=== PATIENT | male | born 1940 | race Caucasian/White ===

== ENCOUNTER 2019-10-22 16:02 | Outpatient (CLI) | payer MEDICARE, OTHER, SELFPAY ==
--- NOTE | 2019-10-26 11:40 | ONC FU_ITS ---
Dr. Ott Patient Follow-Up Note Patient: Marco Antonio Lowry Unit #: [id number]: [id number] Dicatated By: Omega Ott M.D.Date of Visit:Oct 22, 2019 Onc Med Follow-up/Prog Note Chief Complaint: Anemia and thrombocytopenia. History of Present Illness: This is a 79 year-old man with anemia and thrombocytopenia. He also has a left upper lobe lung nodule, suspected to be malignant. He has known history of Jenny score 7 (3+4) adenocarcinoma of the prostate, by clinical evaluation stage II (T1c, NX, M0), initially diagnosed in July 2009. His pretreatment PSA was 7.2 ng/mL. He underwent definitive radiation, completed on 02/02/2010 to a total dose of 7560 cGy. At that time he also was given short-term androgen deprivation therapy. His PSA declined to 0.03. However, by 2014 and had began to increase gradually. In October 2017 he had been admitted to the hospital with anemia, hemoglobin 7.3 g. He hadacute upper GI bleeding, and he had evidence of acute non-ST elevation myocardial infarction. He required transfusion of 3 U of packed red blood cells. When he was clinically stable he underwent EGD which showed gastritis, duodenitis, and acute duodenal ulcers. On 12/27/2017 he was readmitted to the hospital for coronary angiography. Sound to have high-grade in-stent narrowing in the right coronary artery at the proximal and distal portions of the stented segments. There was high-grade stenosis in the stented segment of the first obtuse marginal artery. There was mild to moderate diffuse disease in other vessels with extensive coronary calcification. He underwent successful balloon angioplasty for the in-stent restenosis of the proximal and distal RCA and successful balloon angioplasty for in-stent restenosis of the proximal and mid OM-1. During subsequent follow-up he developed urinary retention, for which he has been on self-catheterization. As of 01/21/2018 his follow-up PSA level had increased to 14.70 ng/mL. His further laboratory studies from 02/11/2018 included CBC showing hemoglobin 10.7 g with hematocrit 32.5%. The red cell indices were normal. The white blood cell count was 14,400 and the platelet count was 107,000. Comprehensive metabolic profile showed borderline renal function with BUN 21 and creatinine 1.2 mg/dL. Potassium was low at 3.2 mmol/L. Albumin was low 2.5 g/dL. Liver enzymes were normal. He was noted to have significant weight loss. He had evaluation with CT of the chest, abdomen, and pelvis on 02/22/2018. It showed a new spiculated lesion in the upper lobe of the left lung measuring 1.2 cm, suspicious for neoplasm. There were moderate chronic emphysematous changes. There is no mediastinal or hilar lymphadenopathy noted. There was a moderate amount of free fluid in the pelvis. There was chronic appearing bladder wall thickening. A 50% biconcave compression fracture at T7 was noted to be new and there were new compressions of the superior endplates at T2 and T3. A chronic compression at L2 appeared stable. Also noted was a stable sclerotic lesion in the T10 vertebral body pedicle suspicious for prostate carcinoma metastasis. An enlarged left periaortic lymph node measuring 11 mm also was noted to be unchanged. Further evaluation with PET/CT on 03/02/2018 confirmed a left upper lobe pulmonary nodule measuring 1.2 cm with SUV 2.5, felt to be high probability of malignancy. A 5 mm right lower lobe pulmonary nodule was too small to reliably characterize. Mediastinal uptake was noted to be unremarkable, and there was no evidence of local or distant metastatic disease. A repeat PSA level on 03/08/2018 had decreased to 7.39 ng/mL. I had seen him initially on 03/13/2018. At that point he remains mildly anemic, hemoglobin 10.7 g. His transferrin saturation was low at 17.2% with ferritin 33.1 ng/mL, consistent with iron deficiency. His medical illnesses, in addition to the prostate cancer, include hypertension, hyperlipidemia, coronary artery disease, peripheral arterial disease, carotid artery disease, GERD/peptic ulcer disease, degenerative arthritis, gout, osteoporosis, and depression. He has a history of smoking, starting at age 16. He currently smokes up to 10 small cigars per day. INTERIM HISTORY: As the studies were consistent with iron deficiency and he was not responding to the oral iron supplement, he was given parenteral iron replacement with infusions of Injectafer on 03/21/2018 and 03/28/2018. His follow-up CBC on 05/02/2018 showed significant improvement with the hemoglobin up to 14.7 g and hematocrit 44.2%. His transferrin saturation was normal at 27.3% and ferritin had increased to 235 ng/mL. His restaging chest CT on 05/31/2018 showed similar size of the right upper lobe pulmonary nodule measuring 14 x 7 mm compared to 13 x 7 mm on the prior study from February 2018. The lateral right upper lobe 17 mm opacity also appeared unchanged. The right lower lobe posterior segment subpleural nodule measuring 2.5 mm was unchanged. There was no axillary, hilar, or mediastinal adenopathy noted. T3, T7, T11, and L2 compression fractures appeared unchanged. Surveillance CT of the chest on 09/06/2018 showed enlargement of the left upper lobe mass measuring 1.1 x 1.7 x 1.9 cm compared to 0.7 x 1.4 x 1.5 cm on the prior study. Repeat chest CT on 03/19/2019 showed further progression of the left apical posterior segment mass measuring 1.7 x 2.5 x 2 cm. They were stable remote compression fractures of the thoracic spine and L2 vertebral body. He continued on observation/expectant management. He is seen for a follow-up visit. He does not have very good energy. He says he is at about a half. He does live independently, though. He is having some stress issues because his is him. His ECOG score is 1. His appetite is not particularly good. He eats small meals frequently. His weight has stabilized. He does not have fever or night sweats. He is short of breath with activity. He has cough productive of clear sputum. He has had no hemoptysis. He does not complain of chest pain. He has no GI complaints. He has urinary frequency and nocturia. He says his joints go clickety clack. He has occasional headache in the right frontal area. He reports having tingling in his feet. Medications: AmLODIPine Besylate 1 Tablet (of 2.5 mg) Oral daily, Aspirin 1 Tablet (of 81 mg) Oral daily, Bystolic 1 Tablet (of 10 mg) Oral daily, Carafate 1 Tablet (of 1 G) Oral t.i.d., Clopidogrel Bisulfate 1 Tablet (of 75 mg) Oral daily, Crestor 1 Tablet (of 10 mg) Oral daily, Cymbalta 1 Capsule (of 30 mg) Capsule Delayed Release Particles Oral b.i.d., Ferrous Sulfate 5 mL (of 220 (44 fe) mg/5mL) Elixir Oral daily on Every Other Day, Irbesartan-Hydrochlorothiazide 0.5 Tablet (of 300-12.5 mg) Oral b.i.d., Metoprolol Succinate ER 1 Tablet (of 50 mg) Tablet SR 24 HR Oral daily, Mirtazapine 1 Tablet (of 15 mg) Oral daily, Nitroglycerin 1 Tablet (of 0.4 mg) Tablet, sublingual Sublingual q 5 minutes PRN, Pantoprazole Sodium 1 Tablet (of 40 mg) Tablet, enteric coated Oral b.i.d., Proventil HFA 1 puff(s) (of 108 (90 base) mcg/act) Aerosol, solution Inhalation q 4 hours, Spiriva HandiHaler 1 puff(s) (of 18 mcg) Capsule Inhalation daily, Tamsulosin HCl 1 Tablet (of 0.4 mg) Capsule Oral daily Allergies: No Known Allergies. Review of Systems: Constitutional - His energy is at about a half. He eats small amounts frequently. His weight has stabilized. He has no fever or night sweats. His ECOG score is 1, ENMT - His nose runs a lot. No mouth sores. No sore throat or difficulty swallowing, Hematologic/Lymphatic - He bruises easily, Respiratory - He has shortness of breath with activity. He has a cough productive of clear sputum. He continues to smoke. No pleuritic pain or hemoptysis, Cardiovascular - No angina pain. No palpitations, Gastrointestinal - No nausea or vomiting. No heartburn or acid reflux. No diarrhea or constipation. No blood in the stool or black stools, Genitourinary (M) - No dysuria or hematuria. He has urinary frequency and nocturia. No urgency or incontinence, Musculoskeletal - His joints go clickety clack, Integumentary - No skin complications, Neurologic - No headache or dizziness. He has tingling in his feet, Psychiatric - He has some anxiety and depression. No insomnia. Vital Signs: Performed on Oct 22, 2019 16:05 Height - 72.00 in Weight - 147.6 lbs (LOW) BSA - 1.87 sq.m BMI - 20.02 Temperature - 97.8 F (LOW) Pulse - 65 /min Respiration - 17 /min BP - 150/79 mm(hg) (HIGH) O2 Sat - 97 % Pain - 0 Physical Examination: Constitutional - He appears chronically ill, Eyes - Sclerae nonicteric. Conjunctivae clear, ENMT - No lesions noted in the oral cavity, Hematologic/Lymphatic - No cervical, clavicular, or axillary adenopathy, Respiratory - Lungs are clear with diminished air movement bilaterally, Cardiovascular - Heart rhythm is regular. There is a II/ systolic murmur. There is no gallop or rub noted, Abdomen - Soft. Liver and spleen are not enlarged. There is no abdominal mass or ascites noted and there is no inguinal adenopathy, Extremities - No edema. He has scattered purpuric lesions, Neurologic - No focal neurologic deficits noted. Impression: 1. Patient with mild anemia and thrombocytopenia. His serum iron studies and ferritin level were consistent with iron deficiency. 2. He has CT evidence of left upper lobe lung mass which is suspicious for neoplasm. It appears to be localized by PET/CT. 3. He has known Jenny score 7 (3+4) adenocarcinoma of the prostate, by clinical evaluation stage II (T1c, NX, M0), initially diagnosed in July 2009. He underwent definitive radiation, completed on 02/02/2010 to a total dose of 7560 cGy. He now has rising PSA level but no documented metastatic disease. 4. He has had significant weight loss which is as yet unexplained. His other medical illnesses include: 5. Hypertension. 6. Hyperlipidemia. 7. Coronary artery disease with recent myocardial infarction. 8. Peripheral arterial disease. 9. Carotid artery disease. 10. GERD/peptic ulcer disease with acute GI bleed in October 2017. 11. He recently developed urinary retention, currently on self-catheterization and bladder training. 12. Degenerative arthritis and gout. 13. Osteoporosis. 14. Vitamin D deficiency. 15. He has a history of depression. He was given parenteral iron replacement with Injectafer. He had a very good clinical response. During subsequent follow-up there has been further gradual enlargement of the left upper lobe pulmonary nodule, so that it almost certainly is a slowly progressive malignancy. He also has had further increase in the PSA level consistent with recurrent prostate cancer, but he has not had obvious symptoms associated with it. Thus far he has opted not to attempt any intervention for the pulmonary nodule. Plan: He remains on observation/symptomatic management. I will see him again with restaging CT scans in 3 months. Signed By: Omega Ott M.D. <<Signature on File>>
== END 2019-10-22 16:03 | disposition home or self-care (01) ==
LOC: ONCMED 16:02
PROVIDERS: Family Provider Nurse Practitioner; PCP Nurse Practitioner; Visit Provider Internal Medicine Medical Oncology
DX: C61 Malignant neoplasm of prostate (principal); D69.6 Thrombocytopenia, unspecified; I25.2 Old myocardial infarction; I25.10 Atherosclerotic heart disease of native coronary artery without angina pectoris; D50.9 Iron deficiency anemia, unspecified; R91.8 Other nonspecific abnormal finding of lung field; R97.21 Rising PSA following treatment for malignant neoplasm of prostate; I10 Essential (primary) hypertension; E78.5 Hyperlipidemia, unspecified; I73.9 Peripheral vascular disease, unspecified; K21.9 Gastro-esophageal reflux disease without esophagitis; R33.9 Retention of urine, unspecified; E55.9 Vitamin D deficiency, unspecified; F32.9 Major depressive disorder, single episode, unspecified; Z79.02 Long term (current) use of antithrombotics/antiplatelets; Z79.82 Long term (current) use of aspirin; Z95.5 Presence of coronary angioplasty implant and graft; Z92.3 Personal history of irradiation; Z92.23 Personal history of estrogen therapy; Z87.11 Personal history of peptic ulcer disease
CPT/HCPCS: G0463

== ENCOUNTER → 2019-10-28 13:55 | Outpatient (BNVA) | payer MEDICARE, OTHER, SELFPAY | PROVIDERS: Family Provider Nurse Practitioner; PCP Nurse Practitioner; Visit Provider Nurse Practitioner | DX: I10 Essential (primary) hypertension (principal); E61.1 Iron deficiency; Z95.5 Presence of coronary angioplasty implant and graft; J44.9 Chronic obstructive pulmonary disease, unspecified; E55.9 Vitamin D deficiency, unspecified; G57.91 Unspecified mononeuropathy of right lower limb; F32.9 Major depressive disorder, single episode, unspecified | CPT/HCPCS: 80053; 80061; 82607; 83540; 84443; 85025 ==

== ENCOUNTER → 2020-01-22 12:06 | Outpatient (BNVA) | payer MEDICARE, OTHER, SELFPAY | PROVIDERS: Family Provider Nurse Practitioner; PCP Nurse Practitioner; Visit Provider Nurse Practitioner | DX: J44.9 Chronic obstructive pulmonary disease, unspecified (principal) | CPT/HCPCS: 71046; 85025 ==

== ENCOUNTER → 2020-06-01 15:59 | Outpatient (BNVA) | payer MEDICARE, OTHER, SELFPAY | PROVIDERS: Family Provider Nurse Practitioner; PCP Nurse Practitioner; Visit Provider Nurse Practitioner | DX: I10 Essential (primary) hypertension (principal); M25.552 Pain in left hip; S89.92XA Unspecified injury of left lower leg, initial encounter; S99.912A Unspecified injury of left ankle, initial encounter; S99.922A Unspecified injury of left foot, initial encounter; E55.9 Vitamin D deficiency, unspecified; X58.XXXA Exposure to other specified factors, initial encounter | CPT/HCPCS: 80053; 80061; 81003; 84443; 85025; 87077; 87086; 87184; 87186 ==

== ENCOUNTER → 2020-06-02 13:37 | Outpatient (BNVA) | payer MEDICARE, OTHER, SELFPAY | PROVIDERS: Family Provider Nurse Practitioner; PCP Nurse Practitioner; Visit Provider Nurse Practitioner | DX: M25.552 Pain in left hip (principal); M79.605 Pain in left leg | CPT/HCPCS: 73522; 73590; 73630 ==